=== PATIENT | male | born 1945 | race Caucasian/White ===

== ENCOUNTER 2016-11-27 07:02 | Emergency (ER) | payer MEDICARE ==
--- NOTE | 2016-11-27 07:23 | UC ---
Respiratory Complaint HPI - History of Current Complaint Stated Complaint: RIGHT RIB PAIN,COLD SYMPTOMS Time Seen by Provider: 11/27/16 07:17 Hx Obtained From: Patient Onset/Duration: Gradual Onset, Lasting Days - 5, Still Present Timing: Intermittent Episodes Severity Initially: Mild Severity Currently: Moderate Pain Intensity: 8 - with coughing. deep breathing and sneezing. Character: Cough: Nonproductive Aggravating Factors: Deep Breaths Alleviating Factors: Nothing Associated Signs And Symptoms: Positive: Pleuritic Chest Pain, Wheezing, URI, Nasal Congestion, Hoarseness. Negative: Calf Pain, Calf Swelling, Edema Related History: Seasonal Allergies - Risk Factors Pulmonary Embolism Risk Factors: Recent Travel Cardiac Risk Factors: Family History Pseudomonas Risk Factors: Negative Tuberculosis Risk Factors: Negative - Allergies/Home Medications Allergies/Adverse Reactions: Allergies Allergy/AdvReac Type Severity Reaction Status Date / Time No Known Allergies Allergy Verified 04/20/13 10:35 PMH/Surg Hx/FS Hx/Imm Hx Cancer History Of: Reports: Prostate Cancer - Surgical History Surgical History: Yes - Family History Known Family History: Positive: Cardiac Disease Negative: Hypertension, Diabetes - Social History Occupation: Employed Full-time Lives: With Family Smoking Status (MU): Never Smoked Tobacco Have You Smoked in the Last Year: No Review of Systems Constitutional: Other - sweats, but also taking Lupron ENT: Sore Throat, Nasal Discharge Respiratory: Cough Cardiovascular: Chest Pain All Other Systems Reviewed And Are Negative: Yes Physical Exam Triage Information Reviewed: Yes Appearance: No Pain Distress, Well-Nourished, Ill-Appearing - mild Vital Signs Reviewed: Yes Eyes: Positive: Conjunctiva Clear ENT: Positive: Pharynx normal, Nasal congestion, TMs normal - partially obscurred with wax in the canals Neck exam: Normal Respiratory Exam: Normal Respiratory: Negative: Chest non-tender - tenderness anterior right chest at the rectus insertion, Wheezing Cardiovascular Exam: Normal Musculoskeletal Exam: Normal Neurological Exam: Normal Psychological Exam: Normal Skin Exam: Normal Respiratory Course/Dx - Differential Dx/Diagnosis Differential Diagnosis/HQI/PQRI: Asthma, Lower Resp Infection, Sinusitis Provider Diagnoses: Acute URI. Chest wall pain Discharge - Discharge Plan Condition: Stable Disposition: HOME Patient Education Materials: Upper Respiratory Infection (ED) Referrals: Dakota Farias MD [Primary Care Provider] - 5 Days (follow up blood pressure. )
[2016-11-27 07:34] VITALS: BP 147/61
== END 2016-11-27 07:45 | disposition home or self-care (01) ==
LOC: UCCORT 07:02
DX: J06.9 Acute upper respiratory infection, unspecified (principal); R07.89 Other chest pain; Z85.46 Personal history of malignant neoplasm of prostate
CPT/HCPCS: 99211; G0463

== ENCOUNTER 2018-11-27 10:33 | Day surgery (SDC) | payer MEDICARE ==
[~2018-11-27 10:33] MED LIST: Buffered Lidocaine 1% SYRIN* 1 ML/SYRINGE INTRADERM ONE; Lactated Ringers 1000 ML Bag* 1,000 ML IV SCH
[2018-11-27] MEDS ORDERED: Buffered Lidocaine 1% SYRIN* 1 ML/SYRINGE INTRADERM ONE (10:53)
[2018-11-27] MEDS ORDERED: ceFAZolin 2 GM in NS PREMIX(*) 2 GM/100 ML BAG IVPB ONE (10:53)
[2018-11-27] MEDS ORDERED: fentaNYL* 50 MCG/ML 2 ML VIAL (100 MCG VIAL) ONE (12:00)
[2018-11-27] MEDS ORDERED: Midazolam* 1 MG/ML 2 ML VIAL (2 MG) ONE (12:00)
[2018-11-27] MEDS ORDERED: Bupivacaine 0.25% SDV PF* 10 ML VIAL INJ ONE (12:05)
[2018-11-27] MEDS ORDERED: Lidocaine 2% PF * 5 ML VIAL ONE (12:32)
[2018-11-27] MEDS ORDERED: Propofol* 10 MG/ML 20 ML BTL ONE (12:32)
[2018-11-27] MEDS ORDERED: Naloxone* 0.4 MG/ML 1 ML VIAL IV PRN (13:04)
[2018-11-27 13:41] VITALS: BP 124/75
--- NOTE | 2018-11-27 15:41 | OP ---
DATE OF OPERATION: 11/27/18 - MERGED WITH [facility] DATE OF : 43 SURGEON: Gerardo Grimes MD. DIRECTOR OF BUSINESS SERVICES: RAYSA Baird ANESTHESIOLOGIST: Dr. Fish. ANESTHESIA: Local MAC. PRE-OP DIAGNOSES: Right index, middle, ring, and small trigger fingers. POST-OP DIAGNOSES: Right index, middle, ring, and small trigger fingers. OPERATIVE PROCEDURES: 1. Right index trigger finger release. 2. Right middle trigger finger release. 3. Right ring trigger finger release. 4. Right small trigger finger release. INDICATIONS: Rishi has very severe trigger fingers. I gave him a steroid shot and it did help somewhat, still catching and still bothering him. The hand is still very tight. We had talked about risks and benefits, he wanted to proceed with having the trigger fingers released. ESTIMATED BLOOD LOSS: 2 mL. COMPLICATIONS: None. FINDINGS: See above and below. DESCRIPTION OF PROCEDURE: Rishi was seen in the preoperative holding area. The correct site, side, and procedure were identified. We came back to the operating room. The arm was prepped and draped in the usual fashion and time- out was performed. The arm was exsanguinated with the Esmarch and the tourniquet was inflated to 250 mmHg. I had already infiltrated 0.25% Marcaine throughout the operative area. A transverse incision was made in the distal palmar crease. Dissection was carried down and the palmar fascial bands were released to expose the A1 claire over each finger. Ragnell retractors were first placed on the index finger and I released the A1 claire along the radial third longitudinally throughout its course. The release was completed distally and proximally with the tenotomy scissors. There was a lot of tenosynovitis around the index finger tendons and so that was excised. In like manner, I placed Ragnell retractors and released the middle finger A1 claire. I then released the ring finger A1 claire in similar fashion. Lastly, I released the small finger A1 claire in the same manner. Each of the four trigger fingers were released uneventfully. Once I had made sure all the tendons were nice and clean and there was no more triggering, we irrigated out the wounds. The skin was closed with 4-0 nylon suture. Wounds were dressed with soft dressings and he was taken to the recovery room in stable condition. [id number]/[facility] #: [id number] THOMAS
== END 2018-11-27 14:47 | disposition home or self-care (01) ==
LOC: OR 10:33
PROVIDERS: ATTEND Orthopaedic Surgery Hand Surgery
DX: M65.321 Trigger finger, right index finger (principal); M65.331 Trigger finger, right middle finger; M65.341 Trigger finger, right ring finger; M65.351 Trigger finger, right little finger; G25.0 Essential tremor; Z85.46 Personal history of malignant neoplasm of prostate; E78.5 Hyperlipidemia, unspecified; K21.9 Gastro-esophageal reflux disease without esophagitis; M19.90 Unspecified osteoarthritis, unspecified site; G62.9 Polyneuropathy, unspecified
CPT/HCPCS: J0690; J2250; J2704; J3010; J3490

== ENCOUNTER → 2019-01-29 11:55 | Day surgery (SDC) | payer MEDICARE ==
[~2019-01-29 11:55] MED LIST changes: +Bupivacaine 0.25% SDV PF* 10 ML VIAL INJ ONE; +Dexamethasone IV* 4 MG/ML 1 ML (4 MG) IV SLOW PU ONE; +Dexamethasone IV* 4 MG/ML 1 ML (4 MG) ONE; +Famotidine IV* 10 MG/ML 2 ML (20 mg) IV ONE; +Famotidine IV* 10 MG/ML 2 ML (20 mg) ONE; +HYDROcodone/ACETAMIN 5-325 MG* 1 TAB PO PRN; +Ketorolac INJ* 30 MG/ML 1 ML VIAL IV PRN; +Lidocaine 2% PF * 5 ML VIAL ONE; +Midazolam* 1 MG/ML 2 ML VIAL (2 MG) ONE; +Naloxone* 0.4 MG/ML 1 ML VIAL IV PRN; +Ondansetron INJ* 2 MG/ML VIAL IV PRN; +Propofol* 10 MG/ML 20 ML BTL ONE; +fentaNYL* 50 MCG/ML 2 ML VIAL (100 MCG VIAL) IV PRN; +fentaNYL* 50 MCG/ML 2 ML VIAL (100 MCG VIAL) ONE; +oxyCODONE/Acetamin 5/325 MG* TAB PO PRN
[2019-01-29 16:03] VITALS: BP 142/87
--- NOTE | 2019-01-29 17:39 | OP ---
DATE OF OPERATION: 01/29/19 - [facility] DATE OF : 43 SURGEON: Gerardo Grimes MD. MANAGER [employer] DAT[employer]ASE: RAYSA Rowland. ANESTHESIOLOGIST: Dr. Philippe. ANESTHESIA: Local MAC. PRE-OP DIAGNOSIS: Left index and middle trigger fingers. POST-OP DIAGNOSIS: Left index and middle trigger fingers. OPERATIVE PROCEDURES: 1. Left index trigger finger release. 2. Left middle trigger finger release. ESTIMATED BLOOD LOSS: 2 mL. COMPLICATIONS: None. FINDINGS: See above and below. INDICATIONS: Rishi has the aforementioned trigger fingers, tried some nonoperative treatment. He wanted to proceed with surgery. DESCRIPTION OF PROCEDURE: Rishi was seen in the preoperative holding area. The correct site, side, and procedures were identified. We came back to the operating room, where the arm was prepped and draped in the usual fashion and a time-out was performed. The arm was exsanguinated with the Esmarch and the tourniquet was inflated to 250 mmHg. I made longitudinal incisions over the A1 pullies of the middle and index fingers. Dissection was carried down and full-thickness flaps were raised off the tendon sheath. Ragnell retractors were first placed in the middle finger. A #15 blade was used to longitudinally incise the A1 claire. The release was completed distally and proximally with the tenotomy scissors, releasing the proximal 10% or 20% of the A2 claire. At this point, everything was looking very good. We irrigated out the wound. The Ragnell retractors were placed in the index finger. Full-thickness flaps were raised off of the flexor tendon sheath. The #15 blade was used to incise the A1 claire longitudinally. The release was completed distally and proximally with the tenotomy scissors. Again, everything looked nice and released. At this point, Rishi was awake enough. We had him flex and extend the fingers a few times. Everything was looking good. Wounds were irrigated now. Skin was closed with 4-0 nylon suture. Soft dressing was applied and he was taken to the recovery room in stable condition. [id number]/[facility] #: [id number] MTDD
== END | disposition home or self-care (01) ==
LOC: OR 11:55
PROVIDERS: ATTEND Orthopaedic Surgery Hand Surgery
DX: M65.322 Trigger finger, left index finger (principal); M65.332 Trigger finger, left middle finger; E78.5 Hyperlipidemia, unspecified; K21.9 Gastro-esophageal reflux disease without esophagitis; G62.9 Polyneuropathy, unspecified; Z85.46 Personal history of malignant neoplasm of prostate
CPT/HCPCS: J1100; J2250; J2704; J3010; J3490